=== PATIENT | female | born 1970 | race Asian ===

== ENCOUNTER 2018-06-04 22:00 | Emergency (ER) | payer SELFPAY ==
[~2018-06-04] VITALS: Ht 162.6 cm; Wt 65.5 kg
[~2018-06-04 22:00] MED LIST: ATOR20TA86 PO; BENZ1TAB10 PO; DIPH50 PO; FLUPH2.5I IM; LITH300C3 PO; NIAC100T3 PO
[2018-06-04] MEDS ORDERED: DULO30CA2 PO (22:20)
[2018-06-05] MEDS ORDERED: DiphenhydrAMINE HCL 50 MG/ML VIAL IM ONE (00:45)
[2018-06-05] MEDS ORDERED: LORazepam 2 MG/ML VIAL IM ONE (00:45)
[2018-06-05] MEDS ORDERED: HALOPERIDOL LACTATE 5 MG/ML VIAL IM ONE (00:45)
[2018-06-05] MEDS ORDERED: LORazepam 2 MG TABLET PO ONE (00:45)
[2018-06-05] MEDS ORDERED: HALOPERIDOL 5 MG TABLET PO ONE (00:45)
[2018-06-05 12:30] VITALS: BP 132/70
== END 2018-06-05 14:44 | disposition home or self-care (01) ==
LOC: EMS 22:01
DX: F20.9 Schizophrenia, unspecified (principal); F31.9 Bipolar disorder, unspecified; E78.00 Pure hypercholesterolemia, unspecified; Z88.0 Allergy status to penicillin; Z79.899 Other long term (current) drug therapy
CPT/HCPCS: 96372; 99284; J1200; J1630; J2060

== ENCOUNTER 2019-09-03 09:32 | Emergency (ER) | payer MEDICAID ==
[~2019-09-03] VITALS: Ht 160 cm; Wt 70.5 kg
[~2019-09-03 09:32] MED LIST changes: -ATOR20TA86 PO; +DULO30CA2 PO; -NIAC100T3 PO
[2019-09-03 09:46] VITALS: BP 177/95
[2019-09-03] MEDS ORDERED: [UNRECOGNIZED DRUG - CODE] PO (09:49)
[2019-09-03] MEDS ORDERED: ARIP300S3 IM (09:49)
[2019-09-03 10:36] LABS: BASOPHILS % (AUTO) 0.8 % (0.0-2.0); EOSINOPHILS % (AUTO) 0.4 % (1.0-6.0); HEMATOCRIT 39.2 % (36-46); HEMOGLOBIN 13.2 g/dL (12.0-16.0); LYMPHOCYTES # (AUTO) 1.7 K/uL (1.0-4.8); LYMPHOCYTES % (AUTO) 17.6 % (22.0-44.0); MEAN CORPUSCULAR HGB CONC 33.6 G/dL (31.0-37.0); MEAN CORPUSCULAR VOLUME 92 fL (80-100); MONOCYTES # (AUTO) 0.5 K/uL (0.1-1.0); NEUTROPHILS # (AUTO) 7.2 K/uL (1.8-7.7); NEUTROPHILS % (AUTO) 76.2 % (40.0-70.0); PLATELET COUNT (AUTO) 284 K/uL (150-450); RED BLOOD CELL COUNT(AUTO) 4.25 MIL/uL (4.00-5.20)
[2019-09-03 10:45] LABS: ANION GAP 10 mmol/L (8-16); CARBON DIOXIDE 28 mmol/L (22-29); CHLORIDE 102 mmol/L (98-107); CREATININE 0.66 mg/dL (0.60-1.30); GLOMERULAR FILTR. RATE CALC > 60 mL/min (>60); GLUCOSE,RANDOM 110 mg/dL (70-110); SODIUM SERUM 140 mmol/L (136-145); UREA NITROGEN, BLOOD 11 mg/dL (7-18)
[2019-09-03 10:57] LABS: ALANINE AMINOTRANSFERASE 22 U/L (12-78); ALBUMIN 4.1 g/dL (3.4-5.0); ALKALINE PHOSPHATASE 70 U/L (46-116); ASPARTATE AMINOTRANSFERASE 14 U/L (15-37); BILIRUBIN,TOTAL 0.4 mg/dL (0.1-1.0); HCG,QUANTITATIVE 1 mIU/mL (0-6); TOTAL PROTEIN, SERUM 7.9 g/dL (6.4-8.2)
[2019-09-03 12:03] LABS: AMPHET/METH SCREEN,URINE NEGATIVE (NEGATIVE); BARBITURATE SCREEN, URINE NEGATIVE (NEGATIVE); BENZODIAZEPINES SCREEN,URINE NEGATIVE (NEGATIVE); CANNABINOID SCREEN,URINE NEGATIVE (NEGATIVE); COCAINE SCREEN,URINE NEGATIVE (NEGATIVE); METHADONE SCREEN, URINE NEGATIVE (NEGATIVE); OPIATE SCREEN,URINE NEGATIVE (NEGATIVE)
[2019-09-03 12:04] LABS: PHENCYCLIDINE SCREEN,URINE NEGATIVE (NEGATIVE)
== END 2019-09-03 11:45 | disposition home or self-care (01) ==
LOC: EMS 09:32
DX: F25.9 Schizoaffective disorder, unspecified (principal); F69 Unspecified disorder of adult personality and behavior; F31.9 Bipolar disorder, unspecified; E78.00 Pure hypercholesterolemia, unspecified; Z88.1 Allergy status to other antibiotic agents
CPT/HCPCS: 36415; 80053; 80307; 84702; 85025; 99284; G0480

== ENCOUNTER 2020-06-11 03:57 | Emergency (ER) | payer MEDICAID ==
[~2020-06-11] VITALS: Ht 160 cm; Wt 70.5 kg
[~2020-06-11 03:57] MED LIST changes: +ARIP300S3 IM; +DIVA125T32 PO; -DULO30CA2 PO; -FLUPH2.5I IM; -LITH300C3 PO
[2020-06-11 04:55] LABS: BASOPHILS % (AUTO) 1.1 % (0.0-2.0); EOSINOPHILS % (AUTO) 1.8 % (1.0-6.0); HEMATOCRIT 39.8 % (36-46); HEMOGLOBIN 13.4 g/dL (12.0-16.0); LYMPHOCYTES # (AUTO) 2.2 K/uL (1.0-4.8); LYMPHOCYTES % (AUTO) 22.4 % (22.0-44.0); MEAN CORPUSCULAR HEMOGLOBIN 30.3 pg (26.0-34.0); MEAN CORPUSCULAR HGB CONC 33.8 G/dL (31.0-37.0); MEAN CORPUSCULAR VOLUME 90 fL (80-100); MONOCYTES # (AUTO) 0.8 K/uL (0.1-1.0); MONOCYTES % (AUTO) 8.1 % (2.0-9.0); NEUTROPHILS # (AUTO) 6.5 K/uL (1.8-7.7); NEUTROPHILS % (AUTO) 66.6 % (40.0-70.0); PLATELET COUNT (AUTO) 258 K/uL (150-450); RED BLOOD CELL COUNT(AUTO) 4.44 MIL/uL (4.00-5.20); RED CELL DISTRIBUTION WIDTH 12.8 % (11.5-14.5)
[2020-06-11 05:11] LABS: ANION GAP 9 mmol/L (8-16); CARBON DIOXIDE 28 mmol/L (22-29); CHLORIDE 101 mmol/L (98-107); GLUCOSE,RANDOM 95 mg/dL (70-110); SODIUM SERUM 138 mmol/L (136-145); UREA NITROGEN, BLOOD 12 mg/dL (7-18)
[2020-06-11 05:12] LABS: CALCIUM, TOTAL 9.1 mg/dL (8.8-10.5); GLOMERULAR FILTR. RATE CALC > 60 mL/min (>60)
[2020-06-11 05:18] LABS: ALANINE AMINOTRANSFERASE 27 U/L (12-78); ALBUMIN 3.8 g/dL (3.4-5.0); ALKALINE PHOSPHATASE 76 U/L (46-116); ASPARTATE AMINOTRANSFERASE 14 U/L (15-37); BILIRUBIN,TOTAL 0.4 mg/dL (0.1-1.0); TOTAL PROTEIN, SERUM 7.5 g/dL (6.4-8.2)
[2020-06-11] MEDS ORDERED: OLANZapine 5 MG TABLET PO ONE (05:30)
[2020-06-11 06:06] VITALS: BP 133/88
== END 2020-06-11 06:07 | disposition home or self-care (01) ==
LOC: EMS 04:03
DX: F25.9 Schizoaffective disorder, unspecified (principal); F31.9 Bipolar disorder, unspecified; E78.00 Pure hypercholesterolemia, unspecified; Z88.1 Allergy status to other antibiotic agents
CPT/HCPCS: 36415; 80053; 85025; 99284; G0480

== ENCOUNTER 2021-01-06 13:41 | Emergency (ER) | payer MEDICAID ==
[~2021-01-06] VITALS: Ht 162.6 cm; Wt 70.0 kg
[2021-01-06 13:45] VITALS: BP 169/84
[2021-01-06] MEDS ORDERED: KETOROLAC TROMETHAMINE 10 MG TABLET PO ONE (15:00)
== END 2021-01-06 16:00 | disposition home or self-care (01) ==
LOC: EMS 13:43
DX: S86.912A Strain of unspecified muscle(s) and tendon(s) at lower leg level, left leg, initial encounter (principal); S93.602A Unspecified sprain of left foot, initial encounter; M25.551 Pain in right hip; F31.9 Bipolar disorder, unspecified; E78.00 Pure hypercholesterolemia, unspecified; F20.9 Schizophrenia, unspecified; Z88.1 Allergy status to other antibiotic agents; W19.XXXA Unspecified fall, initial encounter; Y93.89 Activity, other specified; Y92.89 Other specified places as the place of occurrence of the external cause; Y99.8 Other external cause status
CPT/HCPCS: 99283

== ENCOUNTER 2021-01-22 11:38 | Emergency (ER) | payer MEDICAID ==
[~2021-01-22] VITALS: Ht 162.6 cm; Wt 66.8 kg
[2021-01-22] MEDS: IBUPROFEN 600 MG TABLET PO ONE ×2 (12:44→12:49)
[2021-01-22 12:52] VITALS: BP 139/78
== END 2021-01-22 13:07 | disposition home or self-care (01) ==
LOC: EMS 11:38
DX: M25.511 Pain in right shoulder (principal); E11.9 Type 2 diabetes mellitus without complications; F32.9 Major depressive disorder, single episode, unspecified; I10 Essential (primary) hypertension; F20.9 Schizophrenia, unspecified; Z88.1 Allergy status to other antibiotic agents
CPT/HCPCS: 99282; Z7502; Z7610

== ENCOUNTER 2021-04-14 22:38 | Emergency (ER) | payer MEDICAID ==
[~2021-04-14] VITALS: Ht 162.6 cm; Wt 66.8 kg
[2021-04-14 23:01] LABS: GLUCOMETER DEV NAME(LOC) ERT.5; GLUCOSE,POINT OF CARE 97 MG/DL (70-110)
[2021-04-14 23:53] LABS: EOSINOPHILS % (AUTO) 1.3 % (1.0-6.0); HEMATOCRIT 39.7 % (36-46); HEMOGLOBIN 13.3 g/dL (12.0-16.0); LYMPHOCYTES # (AUTO) 2.4 K/uL (1.0-4.8); LYMPHOCYTES % (AUTO) 24.6 % (22.0-44.0); MEAN CORPUSCULAR HEMOGLOBIN 29.4 pg (26.0-34.0); MEAN CORPUSCULAR HGB CONC 33.6 G/dL (31.0-37.0); MEAN CORPUSCULAR VOLUME 88 fL (80-100); MONOCYTES # (AUTO) 0.6 K/uL (0.1-1.0); NEUTROPHILS # (AUTO) 6.7 K/uL (1.8-7.7); NEUTROPHILS % (AUTO) 67.1 % (40.0-70.0); PLATELET COUNT (AUTO) 274 K/uL (150-450); RED BLOOD CELL COUNT(AUTO) 4.53 MIL/uL (4.00-5.20); RED CELL DISTRIBUTION WIDTH 12.9 % (11.5-14.5)
[2021-04-15 00:06] LABS: ANION GAP 7 mmol/L (8-16); CALCIUM, TOTAL 9.3 mg/dL (8.8-10.5); CARBON DIOXIDE 29 mmol/L (22-29); CHLORIDE 102 mmol/L (98-107); CREATININE 0.62 mg/dL (0.60-1.30); GLOMERULAR FILTR. RATE CALC > 60 mL/min (>60); GLUCOSE,RANDOM 98 mg/dL (70-110); SODIUM SERUM 138 mmol/L (136-145); UREA NITROGEN, BLOOD 12 mg/dL (7-18)
[2021-04-15 00:12] LABS: ALANINE AMINOTRANSFERASE 16 U/L (12-78); ALBUMIN 4.1 g/dL (3.4-5.0); ALKALINE PHOSPHATASE 76 U/L (46-116); ASPARTATE AMINOTRANSFERASE 12 U/L (15-37); BILIRUBIN,TOTAL 0.5 mg/dL (0.1-1.0); TOTAL PROTEIN, SERUM 7.7 g/dL (6.4-8.2); VALPROIC ACID 73 mcg/mL (50-100)
[2021-04-15] MEDS ORDERED: HALOPERIDOL 5 MG TABLET PO ONE (00:30)
[2021-04-15] MEDS ORDERED: LORazepam 2 MG TABLET PO ONE (00:30)
[2021-04-15 06:50] VITALS: BP 135/82
== END 2021-04-15 06:53 | disposition home or self-care (01) ==
LOC: EMS 22:39
DX: F31.9 Bipolar disorder, unspecified (principal); F41.9 Anxiety disorder, unspecified; M79.18 Myalgia, other site; I10 Essential (primary) hypertension; E11.9 Type 2 diabetes mellitus without complications; F20.9 Schizophrenia, unspecified; Z88.1 Allergy status to other antibiotic agents; Z79.899 Other long term (current) drug therapy
CPT/HCPCS: 80053; 80164; 82962; 85025; 99285; G0480

== ENCOUNTER 2021-08-16 01:21 | Emergency (ER) | payer MEDICAID ==
[~2021-08-16] VITALS: Ht 162.6 cm; Wt 66.8 kg
[~2021-08-16 01:21] MED LIST changes: -BENZ1TAB10 PO; +BENZ1TAB96 PO
[2021-08-16 03:50] VITALS: BP 177/89
[2021-08-16 04:47] LABS: ANION GAP 11 mmol/L (8-16); CALCIUM, TOTAL 8.9 mg/dL (8.8-10.5); CARBON DIOXIDE 25 mmol/L (22-29); CHLORIDE 101 mmol/L (98-107); CREATININE 0.59 mg/dL (0.60-1.30); GLUCOSE,RANDOM 96 mg/dL (70-110); POTASSIUM 3.8 mmol/L (3.5-5.1); SODIUM SERUM 137 mmol/L (136-145); UREA NITROGEN, BLOOD 10 mg/dL (7-18)
[2021-08-16 04:48] LABS: GLOMERULAR FILTR. RATE CALC > 60 mL/min (>60)
[2021-08-16 04:51] LABS: VALPROIC ACID 98 mcg/mL (50-100)
[2021-08-16 04:56] LABS: ACETAMINOPHEN < 2 mcg/mL (10-30)
[2021-08-16 04:57] LABS: SALICYLATE 0.6 mg/dL (2.8-20.0)
[2021-08-16] MEDS ORDERED: OLANZapine 5 MG RAPDIS TABLET PO ONE (05:30)
== END 2021-08-16 09:58 | disposition home or self-care (01) ==
LOC: EMS 01:22
DX: T42.6X1A Poisoning by other antiepileptic and sedative-hypnotic drugs, accidental (unintentional), initial encounter (principal); E11.9 Type 2 diabetes mellitus without complications; F20.9 Schizophrenia, unspecified; F31.9 Bipolar disorder, unspecified; I10 Essential (primary) hypertension; Y92.89 Other specified places as the place of occurrence of the external cause
CPT/HCPCS: 36415; 80048; 80164; 93005; 99284; G0480; G0481

== ENCOUNTER 2021-10-04 19:40 | Inpatient (IN) | payer MEDICAID ==
[~2021-10-04] VITALS: Ht 162.6 cm; Wt 75.7 kg
[2021-10-04 21:23] LABS: BASOPHILS % (AUTO) 0.8 % (0.0-2.0); EOSINOPHILS % (AUTO) 2.2 % (1.0-6.0); HEMATOCRIT 40.2 % (36-46); HEMOGLOBIN 13.6 g/dL (12.0-16.0); LYMPHOCYTES # (AUTO) 1.8 K/uL (1.0-4.8); LYMPHOCYTES % (AUTO) 28.3 % (22.0-44.0); MEAN CORPUSCULAR HEMOGLOBIN 29.9 pg (26.0-34.0); MEAN CORPUSCULAR HGB CONC 33.8 G/dL (31.0-37.0); MEAN CORPUSCULAR VOLUME 88 fL (80-100); MONOCYTES # (AUTO) 0.5 K/uL (0.1-1.0); MONOCYTES % (AUTO) 7.8 % (2.0-9.0); NEUTROPHILS # (AUTO) 3.8 K/uL (1.8-7.7); NEUTROPHILS % (AUTO) 60.9 % (40.0-70.0); PLATELET COUNT (AUTO) 243 K/uL (150-450); RED BLOOD CELL COUNT(AUTO) 4.55 MIL/uL (4.00-5.20); RED CELL DISTRIBUTION WIDTH 12.9 % (11.5-14.5)
[2021-10-04 21:35] LABS: ANION GAP 13 mmol/L (8-16); CALCIUM, TOTAL 9.5 mg/dL (8.8-10.5); CARBON DIOXIDE 27 mmol/L (22-29); CHLORIDE 102 mmol/L (98-107); CREATININE 0.57 mg/dL (0.60-1.30); GLUCOSE,RANDOM 107 mg/dL (70-110); POTASSIUM 3.8 mmol/L (3.5-5.1); SODIUM SERUM 142 mmol/L (136-145); UREA NITROGEN, BLOOD 15 mg/dL (7-18)
[2021-10-04 21:40] LABS: GLOMERULAR FILTR. RATE CALC > 60 mL/min (>60)
[2021-10-04 21:42] LABS: ALANINE AMINOTRANSFERASE 24 U/L (12-78); ALKALINE PHOSPHATASE 72 U/L (46-116); ASPARTATE AMINOTRANSFERASE 12 U/L (15-37); BILIRUBIN,TOTAL 0.5 mg/dL (0.1-1.0); TOTAL PROTEIN, SERUM 7.5 g/dL (6.4-8.2); VALPROIC ACID 3 mcg/mL (50-100)
[2021-10-04 22:19] LABS: APPEARANCE,URINE CLEAR (CLEAR); BILIRUBIN,URINE NEGATIVE (NEGATIVE); GLUCOSE, URINE (UA) NEGATIVE (NEGATIVE); KETONES,URINE NEGATIVE (NEGATIVE); LEUKOCYTE ESTERASE ,URINE TRACE (NEGATIVE); NITRATE,URINE NEGATIVE (NEGATIVE); OCCULT BLOOD,URINE MODERATE (NEGATIVE); PH,URINE 7.5 (5.0-8.0); PROTEIN,URINE TRACE mg/dL (NEGATIVE); SPECIFIC GRAVITIY, URINE 1.019 (1.003-1.030); UROBILINOGEN,URINE <=1.0 mg/dL (<=1.0)
[2021-10-04 22:25] LABS: AMPHET/METH SCREEN,URINE NEGATIVE (NEGATIVE); BARBITURATE SCREEN, URINE NEGATIVE (NEGATIVE); BENZODIAZEPINES SCREEN,URINE NEGATIVE (NEGATIVE); CANNABINOID SCREEN,URINE NEGATIVE (NEGATIVE); COCAINE SCREEN,URINE NEGATIVE (NEGATIVE); METHADONE SCREEN, URINE NEGATIVE (NEGATIVE); OPIATE SCREEN,URINE NEGATIVE (NEGATIVE)
[2021-10-04 22:28] LABS: PHENCYCLIDINE SCREEN,URINE NEGATIVE (NEGATIVE)
[2021-10-04 22:42] LABS: BACTERIA,URINE None Seen /HPF (None Seen)
[2021-10-04 22:43] LABS: RBC,URINE 26-50 /HPF (0-2)
[2021-10-04 22:47] LABS: COVID AG,FIA SOURCE NASOPHARYNGEAL
[2021-10-04] MEDS ORDERED: LORazepam 1 MG TABLET PO ONE (23:30)
[2021-10-04] MEDS ORDERED: HALOPERIDOL 5 MG TABLET PO ONE (23:30)
[2021-10-04] MEDS ORDERED: DiphenhydrAMINE HCL 25 MG CAPSULE PO ONE (23:30)
[2021-10-05] MEDS ORDERED: HALOPERIDOL 5 MG TABLET PO PRN
[2021-10-05 19:38] VITALS: BP 140/90
[2021-10-05] MEDS ORDERED: OMEPRAZOLE 20 MG CAPSULE PO PRN (20:15)
[2021-10-05] MEDS ORDERED: MAG HYDROX/AL HYDROX/SIMETH ES 30 ML SUSPENSION UDCUP PO PRN (20:15)
[2021-10-05] MEDS ORDERED: ACETAMINOPHEN 325 MG TABLET PO PRN (20:15)
[2021-10-05] MEDS ORDERED: MAGNESIUM HYDROXIDE SUSPENSION 30 ML UDCUP PO PRN (20:15)
[2021-10-05] MEDS ORDERED: BENZOCAINE/MENTHOL LOZENGE PO PRN (20:15)
[2021-10-05] MEDS ORDERED: CloNIDine HCL 0.1 MG TABLET PO PRN (20:15)
[2021-10-05] MEDS ORDERED: IBUPROFEN 600 MG TABLET PO PRN (20:15)
[2021-10-05] MEDS ORDERED: ONDANSETRON HCL 4 MG TABLET PO PRN (20:15)
[2021-10-05] MEDS ORDERED: BACITRACIN 28 GM OINTMENT TP PRN (20:15)
[2021-10-05] MEDS ORDERED: ALBUTEROL SULFATE HFA 90 MCG/PUFF 8 GM INHALER IH PRN (20:15)
[2021-10-05] MEDS ORDERED: DOCUSATE SODIUM 100 MG CAPSULE PO PRN (20:15)
[2021-10-05] MEDS ORDERED: PETROLATUM,WHITE 28 GM JELLY TP PRN (20:15)
[2021-10-05] MEDS ORDERED: LOPERAMIDE HCL 2 MG CAPSULE PO PRN (20:15)
[2021-10-05 20:46] LABS: GLUCOMETER DEV NAME(LOC) BV3S.; GLUCOSE,POINT OF CARE 162 MG/DL (70-110)
[2021-10-05] MEDS: ZOLPIDEM TARTRATE 10 MG TABLET PO PRN (22:58)
[2021-10-06 08:15] VITALS: BP 144/99
[2021-10-06] MEDS: LORazepam 2 MG TABLET PO PRN (09:53)
[2021-10-06] MEDS: ZOLPIDEM TARTRATE 10 MG TABLET PO PRN (20:33)
[2021-10-06] MEDS: ARIPiprazole 15 MG TABLET PO SCH (20:33)
[2021-10-06] MEDS: DIVALPROEX SODIUM 500 MG DR TABLET PO SCH (20:33)
[2021-10-06 21:31] VITALS: BP 130/79
[2021-10-07 08:08] VITALS: BP 143/95
[2021-10-07] MEDS: DIVALPROEX SODIUM 500 MG DR TABLET PO SCH ×2 (09:03→20:19)
[2021-10-07] MEDS: LORazepam 2 MG TABLET PO PRN (18:39)
[2021-10-07 20:12] VITALS: BP 145/86
[2021-10-07] MEDS: ARIPiprazole 15 MG TABLET PO SCH (20:19)
[2021-10-08] MEDS: DIVALPROEX SODIUM 500 MG DR TABLET PO SCH ×2 (08:48→20:05)
[2021-10-08] MEDS: LORazepam 2 MG TABLET PO PRN (08:53)
[2021-10-08 09:08] VITALS: BP 140/88
[2021-10-08] MEDS: ARIPiprazole 15 MG TABLET PO SCH (20:05)
[2021-10-08 20:28] VITALS: BP 143/82
[2021-10-09] MEDS: LORazepam 2 MG TABLET PO PRN (08:31)
[2021-10-09] MEDS: DIVALPROEX SODIUM 500 MG DR TABLET PO SCH ×2 (08:31→20:16)
[2021-10-09 08:32] VITALS: BP 156/92
[2021-10-09 11:00] VITALS: BP 140/88
[2021-10-09] MEDS: ARIPiprazole 15 MG TABLET PO SCH (20:16)
[2021-10-09 20:32] VITALS: BP 142/83
[2021-10-10 07:24] LABS: VALPROIC ACID 75 mcg/mL (50-100)
[2021-10-10 08:27] VITALS: BP 142/89
[2021-10-10 08:38] LABS: BAND NEUTROPHILS % (MANUAL) 0 % (0-5)
[2021-10-10 08:44] LABS: HEMATOCRIT 39.1 % (36-46); HEMOGLOBIN 13.4 g/dL (12.0-16.0); MEAN CORPUSCULAR HEMOGLOBIN 29.9 pg (26.0-34.0); MEAN CORPUSCULAR HGB CONC 34.2 G/dL (31.0-37.0); MEAN CORPUSCULAR VOLUME 87 fL (80-100); PLATELET COUNT (AUTO) 230 K/uL (150-450); RED BLOOD CELL COUNT(AUTO) 4.47 MIL/uL (4.00-5.20); RED CELL DISTRIBUTION WIDTH 12.7 % (11.5-14.5)
[2021-10-10 08:53] LABS: ALANINE AMINOTRANSFERASE 23 U/L (12-78); ALBUMIN 3.7 g/dL (3.4-5.0); ALKALINE PHOSPHATASE 77 U/L (46-116); ANION GAP 15 mmol/L (8-16); ASPARTATE AMINOTRANSFERASE 15 U/L (15-37); BILIRUBIN,TOTAL 0.3 mg/dL (0.1-1.0); CALCIUM, TOTAL 9.8 mg/dL (8.8-10.5); CARBON DIOXIDE 25 mmol/L (22-29); CHLORIDE 103 mmol/L (98-107); CREATININE 0.52 mg/dL (0.60-1.30); GLUCOSE,RANDOM 110 mg/dL (70-110); POTASSIUM 4.2 mmol/L (3.5-5.1); SODIUM SERUM 143 mmol/L (136-145); TOTAL PROTEIN, SERUM 7.9 g/dL (6.4-8.2); UREA NITROGEN, BLOOD 17 mg/dL (7-18)
[2021-10-10 08:57] LABS: GLOMERULAR FILTR. RATE CALC > 60 mL/min (>60)
[2021-10-10 09:08] LABS: LYMPHOCYTES % (MANUAL) 30 % (22-44); MONOCYTES % (MANUAL) 2 % (2-9); SEGMENTED NEUTROPHILS % 68 % (40-70)
[2021-10-10] MEDS: DIVALPROEX SODIUM 500 MG DR TABLET PO SCH ×2 (09:31→20:01)
[2021-10-10] MEDS: ZOLPIDEM TARTRATE 10 MG TABLET PO PRN (20:01)
[2021-10-10] MEDS: ARIPiprazole 15 MG TABLET PO SCH (20:01)
[2021-10-10 20:25] VITALS: BP 140/83
[2021-10-11 08:06] VITALS: BP 153/92
[2021-10-11] MEDS: DIVALPROEX SODIUM 500 MG DR TABLET PO SCH (09:21)
[2021-10-11] MEDS ORDERED: DIVA-112 PO (09:49)
[2021-10-11] MEDS ORDERED: ARIP15TA27 PO (09:49)
== END 2021-10-11 13:38 | disposition home or self-care (01) | DRG 750 ==
LOC: EMS 19:55 → B3A 10-05 13:28
PROVIDERS: ADMIT Psychiatry & Neurology Psychiatry; ATTEND Psychiatry & Neurology Psychiatry
DX: F25.0 Schizoaffective disorder, bipolar type (principal); E11.9 Type 2 diabetes mellitus without complications; Z20.822 Contact with and (suspected) exposure to COVID-19; I10 Essential (primary) hypertension; F41.9 Anxiety disorder, unspecified; K21.9 Gastro-esophageal reflux disease without esophagitis; G47.00 Insomnia, unspecified; K59.00 Constipation, unspecified; M41.9 Scoliosis, unspecified; Z88.0 Allergy status to penicillin
CPT/HCPCS: 80053; 80164; 81001; 82962; 83525; 85007; 85025; 85027; 99285; G0480

== ENCOUNTER 2022-03-25 12:27 | Emergency (ER) | payer MEDICAID ==
[~2022-03-25] VITALS: Ht 152.4 cm; Wt 75.0 kg
[~2022-03-25 12:27] MED LIST changes: +ARIP15TA27 PO; -ARIP300S3 IM; -BENZ1TAB96 PO; -DIPH50 PO; +DIVA-112 PO; -DIVA125T32 PO
[2022-03-25 12:31] VITALS: BP 159/91
[2022-03-25] MEDS ORDERED: BENZ0.5T49 PO (12:36)
[2022-03-25] MEDS ORDERED: LISI2.5T91 PO (12:39)
[2022-03-25] MEDS ORDERED: CARV3.1231 PO ×2 (12:39)
[2022-03-25] MEDS ORDERED: CARV25TA32 PO (19:24)
[2022-03-25] MEDS ORDERED: BENZ2TAB76 PO (19:24)
[2022-03-25] MEDS ORDERED: DIVA-112 PO (19:24)
[2022-03-25] MEDS ORDERED: DIPH-1080 PO (19:24)
[2022-03-25] MEDS ORDERED: LISI40TA9 PO (19:24)
[2022-03-25] MEDS ORDERED: DIVA-111 PO (19:24)
[2022-03-25] MEDS ORDERED: HALO100V36 IM (19:24)
[2022-03-25] MEDS ORDERED: ARIP5TAB37 PO (19:24)
== END 2022-03-25 14:05 | disposition home or self-care (01) ==
LOC: EMS 12:32
DX: B35.1 Tinea unguium (principal); F32.A Depression, unspecified; F20.9 Schizophrenia, unspecified; I10 Essential (primary) hypertension; M41.9 Scoliosis, unspecified; Z88.8 Allergy status to other drugs, medicaments and biological substances
CPT/HCPCS: 99281; Z7502

== ENCOUNTER 2022-03-25 18:42 | Emergency (ER) | payer MEDICAID ==
[~2022-03-25] VITALS: Ht 152.4 cm; Wt 75.0 kg
[~2022-03-25 18:42] MED LIST changes: +BENZ0.5T49 PO; +CARV3.1231 PO; +LISI2.5T91 PO
[2022-03-25] MEDS ORDERED: BENZ2TAB76 PO (19:24)
[2022-03-25] MEDS ORDERED: DIVA-112 PO (19:24)
[2022-03-25] MEDS ORDERED: LISI40TA9 PO (19:24)
[2022-03-25] MEDS ORDERED: ARIP5TAB37 PO (19:24)
[2022-03-25] MEDS ORDERED: CARV25TA32 PO (19:24)
[2022-03-25] MEDS ORDERED: DIPH-1080 PO (19:24)
[2022-03-25] MEDS ORDERED: HALO100V36 IM (19:24)
[2022-03-25] MEDS ORDERED: DIVA-111 PO (19:24)
[2022-03-25] MEDS ORDERED: KETOROLAC TROMETHAMINE 30 MG/ML VIAL IM ONE (19:30)
[2022-03-25 21:00] VITALS: BP 135/84
== END 2022-03-25 21:28 | disposition home or self-care (01) ==
LOC: EMS 18:42
DX: S70.01XA Contusion of right hip, initial encounter (principal); F32.A Depression, unspecified; I10 Essential (primary) hypertension; F20.9 Schizophrenia, unspecified; M41.9 Scoliosis, unspecified; Z88.8 Allergy status to other drugs, medicaments and biological substances; W19.XXXA Unspecified fall, initial encounter; Y93.89 Activity, other specified; Y92.89 Other specified places as the place of occurrence of the external cause; Y99.8 Other external cause status
CPT/HCPCS: 99283; 73502; 96372; J1885

== ENCOUNTER 2022-04-15 19:44 | Emergency (ER) | payer MEDICAID ==
[~2022-04-15] VITALS: Ht 152.4 cm; Wt 75.0 kg
[~2022-04-15 19:44] MED LIST changes: -ARIP15TA27 PO; +ARIP5TAB37 PO; -BENZ0.5T49 PO; +BENZ2TAB76 PO; +CARV25TA32 PO; -CARV3.1231 PO; +DIPH-1080 PO; +DIVA-111 PO; +HALO100V36 IM; -LISI2.5T91 PO; +LISI40TA9 PO
[2022-04-15] MEDS ORDERED: MUPI1OIN5 TP (20:35)
[2022-04-15] MEDS ORDERED: IBUPROFEN 600 MG TABLET PO ONE (20:45)
[2022-04-15 20:51] VITALS: BP 146/96
== END 2022-04-15 21:00 | disposition home or self-care (01) ==
LOC: EMS 19:45
DX: S80.211A Abrasion, right knee, initial encounter (principal); F32.A Depression, unspecified; I10 Essential (primary) hypertension; F20.9 Schizophrenia, unspecified; M19.90 Unspecified osteoarthritis, unspecified site; M41.9 Scoliosis, unspecified; Z88.8 Allergy status to other drugs, medicaments and biological substances; W01.0XXA Fall on same level from slipping, tripping and stumbling without subsequent striking against object, initial encounter; Y93.89 Activity, other specified; Y92.89 Other specified places as the place of occurrence of the external cause; Y99.8 Other external cause status
CPT/HCPCS: 99283

== ENCOUNTER 2023-08-08 14:06 | Emergency (ER) | payer MEDICAID ==
[~2023-08-08] VITALS: Ht 165.1 cm; Wt 79.0 kg
[~2023-08-08 14:06] MED LIST changes: +BENZ2TAB71 PO; -BENZ2TAB76 PO; -DIPH-1080 PO; +DIPH-1237 PO; +MUPI1OIN5 TP
[2023-08-08 14:09] VITALS: BP 153/78; PULSE 91; RESP 16; TEMP 98.3
== END 2023-08-08 15:37 | disposition left against medical advice (07) ==
LOC: EMS 14:15
DX: M54.50 Low back pain, unspecified (principal); Z53.21 Procedure and treatment not carried out due to patient leaving prior to being seen by health care provider

== ENCOUNTER 2023-10-28 22:07 | Emergency (ER) | payer MEDICAID ==
[~2023-10-28] VITALS: Ht 162.6 cm; Wt 79.1 kg
[~2023-10-28 22:07] MED LIST changes: -BENZ2TAB71 PO; +BENZ2TAB84 PO
[2023-10-28 22:14] VITALS: BP 189/103; PULSE 102; RESP 17; TEMP 98.3
[2023-10-28 23:15] LABS: APPEARANCE,URINE HAZY (CLEAR); BILIRUBIN,URINE NEGATIVE (NEGATIVE); COLOR,URINE LIGHT YELLOW (YELLOW); GLUCOSE, URINE (UA) NEGATIVE (NEGATIVE); KETONES,URINE NEGATIVE (NEGATIVE); LEUKOCYTE ESTERASE ,URINE LARGE (NEGATIVE); NITRATE,URINE NEGATIVE (NEGATIVE); OCCULT BLOOD,URINE MODERATE (NEGATIVE); PH,URINE 6.5 (5.0-8.0); PROTEIN,URINE 30-70 mg/dL (NEGATIVE); SPECIFIC GRAVITIY, URINE 1.011 (1.003-1.030); UROBILINOGEN,URINE <=1.0 mg/dL (<=1.0)
[2023-10-28 23:25] LABS: WBC,URINE 26-50 /HPF (0-5)
[2023-10-28 23:26] LABS: BACTERIA,URINE Moderate /HPF (None Seen); YEAST,URINE Rare /HPF (None Seen)
[2023-10-29] MEDS: PHENAZOPYRIDINE HCL 100 MG TABLET PO ONE (00:28)
[2023-10-29] MEDS: IBUPROFEN 600 MG TABLET PO ONE (00:28)
[2023-10-29] MEDS: LIDOCAINE/PF 1% 2 ML VIAL IM ONE (00:29)
[2023-10-29] MEDS: CefTRIAXone SODIUM 1 GM/VIAL IM ONE (00:29)
[2023-10-29] MEDS: ACETAMINOPHEN 500 MG TABLET PO ONE (00:29)
[2023-10-29 00:55] LABS: BASOPHILS % (AUTO) 0.4 % (0.0-2.0); EOSINOPHILS % (AUTO) 1.1 % (1.0-6.0); HEMATOCRIT 35.9 % (36-46); HEMOGLOBIN 12.1 g/dL (12.0-16.0); LYMPHOCYTES % (AUTO) 12.3 % (22.0-44.0); MEAN CORPUSCULAR HEMOGLOBIN 29.8 pg (26.0-34.0); MEAN CORPUSCULAR HGB CONC 33.6 G/dL (31.0-37.0); MEAN CORPUSCULAR VOLUME 89 fL (80-100); MONOCYTES # (AUTO) 0.8 K/uL (0.1-1.0); MONOCYTES % (AUTO) 10.3 % (2.0-9.0); NEUTROPHILS % (AUTO) 75.9 % (40.0-70.0); PLATELET COUNT (AUTO) 270 K/uL (150-450); RED BLOOD CELL COUNT(AUTO) 4.06 MIL/uL (4.00-5.20); RED CELL DISTRIBUTION WIDTH 13.4 % (11.5-14.5); WHITE BLOOD COUNT (AUTO) 7.9 K/uL (4.5-11.0)
[2023-10-29 01:09] LABS: ANION GAP 10 mmol/L (8-16); CALCIUM, TOTAL 8.8 mg/dL (8.8-10.5); CARBON DIOXIDE 27 mmol/L (22-29); CHLORIDE 100 mmol/L (98-107); CREATININE 0.82 mg/dL (0.60-1.30); GLOMERULAR FILTR. RATE CALC > 60 mL/min (>60); GLUCOSE,RANDOM 138 mg/dL (70-110); POTASSIUM 3.9 mmol/L (3.5-5.1); SODIUM SERUM 137 mmol/L (136-145); UREA NITROGEN, BLOOD 10 mg/dL (7-18)
[2023-10-29] MEDS ORDERED: ACET-66 PO (01:20)
[2023-10-29] MEDS ORDERED: IBUP-1554 PO (01:20)
[2023-10-29] MEDS ORDERED: CEPH-558 PO (01:20)
[2023-10-29] MEDS ORDERED: PHEN-674 PO (01:20)
== END 2023-10-29 01:30 | disposition home or self-care (01) ==
LOC: EMS 22:07
DX: N39.0 Urinary tract infection, site not specified (principal); F25.0 Schizoaffective disorder, bipolar type; E11.9 Type 2 diabetes mellitus without complications; I10 Essential (primary) hypertension; Z88.8 Allergy status to other drugs, medicaments and biological substances
CPT/HCPCS: 99284; 80048; 81001; 82962; 85025; 36415; 87086; 87186; 96372; J0696; J3490